=== PATIENT | male | born 1995 | race African-American/Black ===

== ENCOUNTER 2016-07-13 18:40 | Emergency (ER) | payer OTHER ==
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
[2016-07-13] MEDS ORDERED: HYDROCODONE/ACETAMINOPHEN 5-325 MG TABLET PO ONE (22:56)
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
[2016-07-13 23:49] VITALS: BP 113/57
== END 2016-07-13 23:40 | disposition home or self-care (01) ==
LOC: ER 18:40
DX: M54.5 Low back pain (principal); M25.561 Pain in right knee; V49.50XA Passenger injured in collision with unspecified motor vehicles in traffic accident, initial encounter; F17.210 Nicotine dependence, cigarettes, uncomplicated; Z71.6 Tobacco abuse counseling; J45.909 Unspecified asthma, uncomplicated
CPT/HCPCS: 72110; 99283; 99406

== ENCOUNTER 2016-08-09 02:27 | Emergency (ER) | payer OTHER ==
[2016-08-09 02:42] VITALS: BP 115/63
[2016-08-09] MEDS ORDERED: LIDOCAINE 1% INJ-PF (10 MG/ML) 30 ML SDV INJ ONE (03:44)
--- NOTE | 2016-08-09 05:22 | ER Document Report ---
ED Skin Rash/Insect Bite/Abscs - General Chief Complaint: Abscess Stated Complaint: RIGHT ARM PAIN Mode of Arrival: Ambulatory Information source: Patient Notes: 21-year-old male presents to the emergency department complaining of persistent area of tenderness and swelling to right buttocks area over the last 2 weeks. Patient reports area began as pimple-like and has increased in size and tenderness. Denies fever, drainage, difficulty with bowel movements or urination. Reports similar episode in the past when he had abscess to left groin. States has had tetanus vaccination within the last 2 years. TRAVEL OUTSIDE OF THE [place] IN LAST 30 DAYS: No - HPI Patient complains to provider of: Tender/swollen area Onset/Duration: Persistent Quality of pain: Achy Severity: Moderate Pain Level: 3 Skin Character: Abscess, Tenderness Skin Temperature: Warm Quality of rash: Painful Similar symptoms previously: Yes Recently seen / treated by doctor: No - Related Data Allergies/Adverse Reactions: PEANUTS Adverse Reaction (Severe, Uncoded 08/09/16 02:38) Past Medical History - General Information source: Patient - Social History Smoking Status: Current Every Day Smoker Chew tobacco use (# tins/day): No Frequency of alcohol use: Occasional Drug Abuse: Marijuana Lives with: Family Family History: Reviewed & Not Pertinent Patient has suicidal ideation: No Patient has homicidal ideation: No Pulmonary Medical History: Reports: Hx Asthma Renal/ Medical History: Denies: Hx Peritoneal Dialysis Surgical Hx: Negative - Immunizations Hx Diphtheria, Pertussis, Tetanus Vaccination: Yes Review of Systems - Review of Systems Constitutional: No symptoms reported EENT: No symptoms reported Cardiovascular: No symptoms reported Respiratory: No symptoms reported Gastrointestinal: No symptoms reported Genitourinary: No symptoms reported Male Genitourinary: No symptoms reported Musculoskeletal: No symptoms reported Skin: See HPI Hematologic/Lymphatic: No symptoms reported Neurological/Psychological: No symptoms reported -: Yes All other systems reviewed and negative Physical Exam - Vital signs Vitals: Temp Pulse Resp BP Pulse Ox 98.1 F 64 14 115/63 99 08/09/16 02:40 08/09/16 02:40 08/09/16 02:40 08/09/16 02:40 08/09/16 02:40 - General General appearance: Appears well, Alert In distress: None - HEENT Head: Normocephalic, Atraumatic Eyes: Normal Pupils: PERRL - Respiratory Respiratory status: No respiratory distress Chest status: Nontender Breath sounds: Normal Chest palpation: Normal - Cardiovascular Rhythm: Regular Heart sounds: Normal auscultation Murmur: No Pulses: Normal: Radial Normal capillary refill: Yes - Abdominal Inspection: Normal Distension: No distension Bowel sounds: Normal Tenderness: Nontender Organomegaly: No organomegaly - Rectal Tenderness: No Hemorrhoids: None - Back Back: Normal, Nontender - Extremities General upper extremity: Normal inspection, Nontender, Normal color, Normal ROM , Normal temperature General lower extremity: Normal inspection, Nontender, Normal color, Normal ROM , Normal temperature, Normal weight bearing - Neurological Neuro grossly intact: Yes Cognition: Normal Orientation: AAOx4 [place] Coma Scale Eye Opening: Spontaneous [place] Coma Scale Verbal: Oriented [place] Coma Scale Motor: Obeys Commands Anjali Coma Scale Total: 15 Speech: Normal Motor strength normal: LUE, RUE, LLE, RLE Sensory: Normal - Psychological Associated symptoms: Normal affect, Normal mood - Skin Skin Temperature: Warm Skin Moisture: Dry Skin Color: Normal Skin irregularity: Abscess - Patient has approximately 2 cm diameter raised area of tenderness and fluctuance to right inner lower buttocks approximately 3 cm lateral and inferior of anal area. Not involving perineum or rectum. Course - Re-evaluation Re-evalutation: 08/09/16 05:24 Patient hemodynamically stable, in no distress, afebrile. Abscess of right buttocks not involving perineum or rectum was I&D'd and culture of drainage obtained. Iodoform packing placed. Patient appears stable for discharge and verbalizes understanding of home care, follow-up, ED return precautions. - Vital Signs Vital signs: Temp Pulse Resp BP Pulse Ox 98.1 F 64 14 115/63 99 08/09/16 02:40 08/09/16 02:40 08/09/16 02:40 08/09/16 02:40 08/09/16 02:40 Procedures - Incision and Drainage Right Buttock Time completed: 04:45 Type: Simple Anesthetic type: 1% Lidocaine mL's of anesthetic: 3 Blade size: 11 I&D procedure: Betadine prep applied, Chlorprep applied, Iodoform packing placed , Sterile dressing applied Incision Method: Incision made by scalpel Amount/type of drainage: moderate amount purulent drainage. Culture obtained Adult Front & Back picture: 1 - Abscess Discharge - Discharge Clinical Impression: Abscess Condition: Stable Disposition: HOME, SELF-CARE Additional Instructions: ABSCESS: You have an abscess (boil). This a pus-forming infection, usually due to staph. Some boils may be left to drain on their own, but most require lancing. From the time the tender lump first appears, it may be three or four days before the abscess is ready to delia. Local heat and rest help at this stage of treatment. An antibiotic may prevent spread of the infection. Once the abscess is opened, packing may be placed into it. This is done so pus is not sealed inside by premature closure of the cavity. The packing will be removed at your follow-up visit or you may be advised to remove it yourself at home. Sometimes this packing must be replaced a few times during healing. The wound will heal with surprisingly little scar. Depending on the size and location of an abscess, healing can take one to four weeks. You may shower and wash the area around the incision site two or three times a day. Antibiotics may be prescribed, but are usually not necessary after an abscess has been drained. If you develop fever, chills, worsening pain, or increasing swelling in the area, call the doctor or return immediately. POST INCISION AND DRAINAGE: You have had an incision made to allow drainage of an abscess. The incision must remain open so that pus and debris can drain from the wound. If the abscess cavity is large, packing is placed. This keeps the tissues from collapsing and trapping pus inside, while the body shrinks the cavity. The packing may need to be replaced every day or two. The physician will instruct you on the packing. Keep a bulky dressing over the area. Replace it if it becomes saturated with blood or pus. Do not disturb the packing (if present). You may shower and cleanse the area with gentle soap and warm water two or three times a day. Local warmth may be soothing, and may promote faster healing. Return if you develop high fever or chills, or if you note spreading redness, increasing swelling, or increasing tenderness. ORAL NARCOTIC MEDICATION: You have been given a prescription for pain control. This medication is a narcotic. It's best taken with food, as nausea can result if taken on an empty stomach. Don't operate machinery or drive within six hours of taking this medication. Do not combine this medicine with alcohol, or with any medication which can cause sedation (such as cold tablets or sleeping pills) unless you get permission from the physician. Narcotics tend to cause constipation. If possible, drink plenty of fluids and eat a diet high in fiber and fruits. Clindamycin You have been given a prescription for the antibiotic clindamycin. It is often prescribed for infections in the mouth, such as dental infections or abscesses, and for skin infections due to MRSA. It's important that you take all the medication, unless instructed otherwise by your physician. Failure to complete the entire course can result in relapse of your condition. Common side effects of antibiotics include nausea, intestinal cramping, or diarrhea. Women may develop vaginal yeast infections, and babies can get yeast (thrush) in the mouth following the use of antibiotics. Contact your physician if you develop significant side effects from this medication. Allergy to this antibiotic can result in hives, wheezing, faintness, or itching. If symptoms of allergy occur, stop the medication and call the doctor. Use of Xlny-Ghs-Bmniqgt Ibuprofen Ibuprofen (Advil, Nuprin, Medipren, Motrin IB) is an excellent, safe drug for fever and pain control. In addition, it has anti- inflammatory effects which may be beneficial, especially in the treatment of injuries. It's best to take ibuprofen with food. Persons with ulcer disease or allergy to aspirin should notify their physician of this before taking ibuprofen. Ibuprofen can be given every four to six hours, for a total of four doses daily. Age Pain or fever dose Antiinflammatory dose 6-8 yr 200 mg (1 tab) 200 mg (1 tab) 9-11 yr 200 mg (1 tab) 200-400 mg (1-2 tab) 11-14 yr 200-400 mg (1-2 tab) 400 mg (2 tab) 15-adult 400 mg (2 tab) 600 mg (3 tab) FOLLOW-UP CARE: Remove the packing that was placed in 48 hours or before then if it becomes soiled. You may return to the emergency department to have the packing removed if you are comfortable doing it yourself at home. Follow-up with your primary care provider in 2-3 days. If you experience worsening or a significant change in your symptoms, return to the Emergency Department at any time for re-evaluation. Prescriptions: Clindamycin HCl 300 mg PO Q6H #28 capsule Hydrocodone/Acetaminophen [[place] 5-325 mg Tablet] 1 tab PO Q6H PRN #8 tablet PRN Reason: Forms: Return to Work
[2016-08-09] MEDS ORDERED: HYDROCODONE/ACETAMINOPHEN 5-325 MG TABLET PO ONE (05:31)
== END 2016-08-09 05:54 | disposition home or self-care (01) ==
LOC: ER 02:27
PROC: 0H98XZZ Drainage of Buttock Skin, External Approach (ICD-10-PCS; principal; 2016-08-09)
DX: L02.31 Cutaneous abscess of buttock (principal); J45.909 Unspecified asthma, uncomplicated; F17.200 Nicotine dependence, unspecified, uncomplicated
CPT/HCPCS: 10060; 99283; 87070; 87205; 87075; 87077; 87186; J3490

== ENCOUNTER 2016-11-14 16:09 | Emergency (ER) | payer SELFPAY ==
[2016-11-14] MEDS ORDERED: CEFTRIAXONE INJ 1000 MG VIAL IM ONE (18:04)
[2016-11-14] MEDS ORDERED: LIDOCAINE 1% INJ-PF (10 MG/ML) 30 ML SDV INJ ONE (18:04)
[2016-11-14] MEDS ORDERED: AZITHROMYCIN 250 MG TABLET PO ONE (18:05)
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
[2016-11-14 19:26] VITALS: BP 125/69
[2016-11-14 20:16] LABS: CHLAM PCR DETECTED (NOT DETECT)
== END 2016-11-14 19:05 | disposition home or self-care (01) ==
LOC: ER 16:09
DX: Z72.51 High risk heterosexual behavior (principal); Z11.3 Encounter for screening for infections with a predominantly sexual mode of transmission; J45.909 Unspecified asthma, uncomplicated
CPT/HCPCS: 99283; 96372; 87491; 87591; J3490; J0696

== ENCOUNTER 2016-11-16 16:52 | Emergency (ER) | payer OTHER ==
[2016-11-16 17:20] VITALS: BP 145/94
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
== END 2016-11-16 18:10 | disposition home or self-care (01) ==
LOC: ER 16:52
DX: M79.604 Pain in right leg (principal); F17.200 Nicotine dependence, unspecified, uncomplicated; V89.2XXA Person injured in unspecified motor-vehicle accident, traffic, initial encounter
CPT/HCPCS: 99283

== ENCOUNTER 2017-06-21 23:06 | Emergency (ER) | payer MEDICAID ==
[2017-06-22] MEDS ORDERED: AZITHROMYCIN 250 MG TABLET PO ONE (01:07)
[2017-06-22] MEDS ORDERED: CEFTRIAXONE INJ 250 MG VIAL IM ONE (01:07)
[2017-06-22] MEDS ORDERED: LIDOCAINE 1% INJ-PF (10 MG/ML) 30 ML SDV INJ ONE (01:07)
--- NOTE | 2017-06-22 01:09 | ER Document Report ---
ED General - General Chief Complaint: STD Exposure Stated Complaint: STD CHECK Time Seen by Provider: 06/22/17 01:06 Notes: Patient is a 22-year-old male with a past medical history presents with concerns of having gonorrhea. Patient states that he was tested at a clinic in [place], [facility] and informed that he had gonorrhea but when he went to the clinic for treatment they were closed. This prompted to come to the emergency department. He denies any symptoms other than a whitish discharge from his penis. He denies any associated dysuria, fever, joint pain or constitutional symptoms. He denies any prior history of STDs in the past. TRAVEL OUTSIDE OF THE [place] IN LAST 30 DAYS: No - Related Data Allergies/Adverse Reactions: PEANUTS Adverse Reaction (Severe, Uncoded 11/14/16 16:31) Past Medical History - General Information source: Patient - Social History Smoking Status: Never Smoker Cigarette use (# per day): No Frequency of alcohol use: None Drug Abuse: None Family History: Reviewed & Not Pertinent Pulmonary Medical History: Reports: Hx Asthma - as child Renal/ Medical History: Denies: Hx Peritoneal Dialysis - Immunizations Hx Diphtheria, Pertussis, Tetanus Vaccination: Yes Review of Systems - Review of Systems Notes: Constitutional: Negative for fever. HENT: Negative for sore throat. Eyes: Negative for visual changes. Cardiovascular: Negative for chest pain. Respiratory: Negative for shortness of breath. Gastrointestinal: Negative for abdominal pain, vomiting or diarrhea. Genitourinary: Positive for penile discharge Musculoskeletal: Negative for back pain. Skin: Negative for rash. Neurological: Negative for headaches, weakness or numbness. 10 point ROS negative except as marked above and in HPI. Physical Exam - Vital signs Vitals: Temp Pulse Resp BP Pulse Ox 98.2 F 56 L 20 119/64 99 06/22/17 00:08 06/22/17 00:08 06/22/17 00:08 06/22/17 00:08 06/22/17 00:08 Interpretation: Normal Notes: PHYSICAL EXAMINATION: GENERAL: Well-appearing, well-nourished and in no acute distress. HEAD: Atraumatic, normocephalic. EYES: sclera anicteric, conjunctiva are normal. ENT: Moist mucous membranes. NECK: Normal range of motion LUNGS: Normal work of breathing HEART: 2+ radial pulses bilaterally : Whitish discharge from the urethral meatus, no penile or scrotal lesions. No testicular tenderness. No epididymal tenderness. EXTREMITIES: no pitting or edema. No cyanosis. NEUROLOGICAL: No focal neurological deficits. Moves all extremities spontaneously and on command. PSYCH: Normal mood, normal affect. SKIN: Warm, Dry, normal turgor, no rashes or lesions noted. Course - Re-evaluation Re-evalutation: 06/22/17 01:08 Patient presents with symptoms of gonorrhea and a positive gonorrhea test and he is presenting requesting treatment. He denies any additional symptoms began dysuria and penile discharge. Exam otherwise unremarkable. He has been treated with ceftriaxone and azithromycin. Safe sex practices have been discussed. At this time will discharge with return precautions and follow-up recommendations. Verbal discharge instructions given a the bedside and opportunity for questions given. Medication warnings reviewed. Patient is in agreement with this plan and has verbalized understanding of return precautions and the need for primary care follow-up in the next 24-72 hours. - Vital Signs Vital signs: Temp Pulse Resp BP Pulse Ox 97.4 F 51 L 14 120/69 99 06/22/17 01:56 06/22/17 01:56 06/22/17 01:56 06/22/17 01:56 06/22/17 01:56 - Laboratory Laboratory results interpreted by me: 06/22/17 00:52 N.gonorrhoeae DNA (PCR) DETECTED H Discharge - Discharge Clinical Impression: STD (male), Gonorrhea Condition: Good Disposition: HOME, SELF-CARE Additional Instructions: You need to use protection every time you have sex. Failure to do so can result in transmission of infections or unintended . You have been treated for an sexually transmitted infection (STI) today. All of your partners should be tested and treated as they are also likely to be infected. Please return if you develop abdominal pain, fever, persistent vomiting, or any other symptoms that are concerning to you.
[2017-06-22 01:59] VITALS: BP 120/69
[2017-06-22 02:31] LABS: CHLAM PCR NOT DETECTED (NOT DETECT); GON PCR DETECTED (NOT DETECT)
== END 2017-06-22 02:00 | disposition home or self-care (01) ==
LOC: ER 23:06
DX: A54.09 Other gonococcal infection of lower genitourinary tract (principal)
CPT/HCPCS: 99283; 96372; 87491; 87591; Q0144; J3490; J0696

== ENCOUNTER 2017-12-17 21:59 | Emergency (ER) | payer SELFPAY ==
[2017-12-17 23:05] VITALS: BP 119/74
[2017-12-18] MEDS ORDERED: LIDOCAINE 1%/EPINEPHRINE INJ 20 ML VIAL INJ ONE (01:12)
[2017-12-18] MEDS ORDERED: BUPIVACAINE HCL 0.25 % INJ/PF (2.5 MG/1 ML) 30 ML VIAL INJ ONE (01:12)
[2017-12-18] MEDS ORDERED: NAPROXEN 375 MG TABLET PO ONE (01:15)
[2017-12-18] MEDS ORDERED: DOXYCYCLINE HYCLATE 100 MG TABLET PO ONE (02:14)
[2017-12-18] MEDS ORDERED: IBUPROFEN 800 MG TABLET PO ONE (02:24)
--- NOTE | 2017-12-18 02:42 | ER Document Report ---
ED Skin Rash/Insect Bite/Abscs - General Chief Complaint: Abscess Stated Complaint: THIGH PAIN Time Seen by Provider: 12/18/17 00:27 Notes: Patient is a 22-year-old male who comes in complaining of a painful lump to his right groin that he has had before. Patient states that he had this area drained in the past. Unsure if he has any history of MRSA. No other past medical history except for tubes in his ears and he was a kid. Patient smokes and drinks socially. TRAVEL OUTSIDE OF THE [place] IN LAST 30 DAYS: No - HPI Patient complains to provider of: Tender/swollen area Onset: Other - 2 weeks Quality of pain: Fullness, Throbbing Severity: Moderate Skin Character: Abscess Skin Temperature: Warm Quality of rash: Painful Exacerbated by: Movement Relieved by: Remaining still Similar symptoms previously: Yes Recently seen / treated by doctor: No - Related Data Allergies/Adverse Reactions: PEANUTS Adverse Reaction (Severe, Uncoded 11/14/16 16:31) Past Medical History - Social History Smoking Status: Current Every Day Smoker Chew tobacco use (# tins/day): No Frequency of alcohol use: None Drug Abuse: Marijuana Family History: Reviewed & Not Pertinent Patient has suicidal ideation: No Patient has homicidal ideation: No Pulmonary Medical History: Reports: Hx Asthma - as child Renal/ Medical History: Denies: Hx Peritoneal Dialysis Past Surgical History: Reports: Hx Myringotomy - Immunizations Hx Diphtheria, Pertussis, Tetanus Vaccination: Yes Review of Systems - Review of Systems Constitutional: No symptoms reported EENT: No symptoms reported Cardiovascular: No symptoms reported Respiratory: No symptoms reported Gastrointestinal: No symptoms reported Genitourinary: No symptoms reported Male Genitourinary: No symptoms reported Musculoskeletal: No symptoms reported Skin: See HPI Hematologic/Lymphatic: No symptoms reported Neurological/Psychological: No symptoms reported Physical Exam - Vital signs Vitals: Temp Pulse Resp BP Pulse Ox 98.9 F 77 12 119/74 98 12/17/17 22:35 12/17/17 22:35 12/17/17 22:35 12/17/17 22:35 12/17/17 22:35 Interpretation: Normal - General General appearance: Appears well, Alert - HEENT Head: Normocephalic, Atraumatic Eyes: Normal Pupils: PERRL - Respiratory Respiratory status: No respiratory distress Chest status: Nontender Breath sounds: Normal Chest palpation: Normal - Cardiovascular Rhythm: Regular Heart sounds: Normal auscultation Murmur: No - Abdominal Inspection: Normal Distension: No distension Bowel sounds: Normal Tenderness: Nontender Organomegaly: No organomegaly - Back Back: Normal, Nontender - Extremities General upper extremity: Normal inspection, Nontender, Normal color, Normal ROM , Normal temperature General lower extremity: Normal inspection, Nontender, Normal color, Normal ROM , Normal temperature, Normal weight bearing. No: Vivi's sign - Neurological Neuro grossly intact: Yes Cognition: Normal Orientation: AAOx4 Anjali Coma Scale Eye Opening: Spontaneous Amberg Coma Scale Verbal: Oriented Anjali Coma Scale Motor: Obeys Commands Amberg Coma Scale Total: 15 Speech: Normal Motor strength normal: LUE, RUE, LLE, RLE Sensory: Normal - Psychological Associated symptoms: Normal affect, Normal mood - Skin Skin Temperature: Warm Skin Moisture: Dry Skin Color: Normal Skin irregularity: Abscess - Right inguinal area approximately 5 cm in diameter Course - Re-evaluation Re-evalutation: 12/18/17 03:06 Incision and drainage performed at bedside. Please see procedure note. Patient will be discharged home with doxycycline and is to return in 24-48 hours for wound check. Patient is agreeable to this plan. Of note, no involvement of scrotum or perineum. Stable for discharge. - Vital Signs Vital signs: Temp Pulse Resp BP Pulse Ox 98.9 F 77 12 119/74 98 12/17/17 22:35 12/17/17 22:35 12/17/17 22:35 12/17/17 22:35 12/17/17 22:35 Procedures - Incision and Drainage Right Groin Time completed: 02:30 Type: Complex Anesthetic type: 1% Lidocaine w/epi, 0.25% Bupivacaine Blade size: 11 I&D procedure: Chlorprep applied, Sterile dressing applied Incision Method: Incision made by scalpel Amount/type of drainage: 10 cc purulent drainage Discharge - Discharge Clinical Impression: Abscess of groin, right Condition: Stable Disposition: HOME, SELF-CARE Instructions: Abscess ([facility]), Post Incision and Drainage Additional Instructions: Please return in 24-48 hours for wound check. Prescriptions: Doxycycline Hyclate 100 mg PO BID #20 capsule Naproxen 375 mg PO DAILY #20 tablet Forms: Return to Work
[2017-12-18] MEDS ORDERED: HYDROCODONE/ACETAMINOPHEN 5-325 MG (6 TAB/ER DISP) PO PRN (02:49)
== END 2017-12-18 03:01 | disposition home or self-care (01) ==
LOC: ER 21:59
DX: L02.214 Cutaneous abscess of groin (principal); F17.200 Nicotine dependence, unspecified, uncomplicated
CPT/HCPCS: 99283; 87070; 87205; 87075; 87077; 10060; A6266; J3490

== ENCOUNTER 2017-12-20 22:38 | Emergency (ER) | payer SELFPAY ==
[2017-12-21] MEDS ORDERED: SULFAMETHOXAZOLE/TRIMETHOPRIM 800-160 MG TABLET PO ONE (00:58)
[2017-12-21] MEDS ORDERED: KETOROLAC TROMETHAMINE 60 MG/2 ML SDV IM ONE (00:58)
--- NOTE | 2017-12-21 00:58 | ER Document Report ---
ED General - General Chief Complaint: Wound Recheck Stated Complaint: LEG PROBLEM Time Seen by Provider: 12/21/17 00:47 Notes: Patient presents with wound recheck request. Approximately 3 days ago he had incision and drainage of abscess to right inguinal area. He was provided doxycycline prescriptions but states that it cost $30 so he did not fill it. He states that the wound has improved but comes back for wound recheck because packing fell out. He denies any nausea vomiting fevers or chills. No known medical allergies to peanuts. TRAVEL OUTSIDE OF THE [place] IN LAST 30 DAYS: No - Related Data Allergies/Adverse Reactions: PEANUTS Adverse Reaction (Severe, Uncoded 11/14/16 16:31) Past Medical History - Social History Smoking Status: Unknown if Ever Smoked Family History: Reviewed & Not Pertinent Pulmonary Medical History: Reports: Hx Asthma - as child Renal/ Medical History: Denies: Hx Peritoneal Dialysis Past Surgical History: Reports: Hx Myringotomy - Immunizations Hx Diphtheria, Pertussis, Tetanus Vaccination: Yes Review of Systems - Review of Systems Constitutional: No symptoms reported EENT: No symptoms reported Cardiovascular: No symptoms reported Respiratory: No symptoms reported Gastrointestinal: No symptoms reported Genitourinary: No symptoms reported Male Genitourinary: No symptoms reported Musculoskeletal: No symptoms reported Skin: No symptoms reported, Other - Abscess to right inguinal area Hematologic/Lymphatic: No symptoms reported Neurological/Psychological: No symptoms reported Physical Exam - Vital signs Vitals: Temp Pulse Resp BP Pulse Ox 98.4 F 54 L 18 114/67 100 12/20/17 23:09 12/20/17 23:09 12/20/17 23:09 12/20/17 23:09 12/20/17 23:09 - General General appearance: Appears well, Alert - HEENT Head: Normocephalic, Atraumatic - Respiratory Respiratory status: No respiratory distress Chest status: Nontender Breath sounds: Normal. No: Rales, Stridor, Wheezing - Cardiovascular Rhythm: Regular Heart sounds: Normal auscultation Murmur: No - Abdominal Inspection: Normal Distension: No distension Bowel sounds: Normal Tenderness: Nontender - Genitourinary Inspection: Other - Small sinus in mid right inguinal area no purulence drainage with pressure applied Course - Re-evaluation Re-evalutation: 12/21/17 00:56 Instructed patient to download good Rx on phone. His friend did so and showed him how to use it and showed that Bactrim is only $7 at a nearby pharmacy. Will provide first dose of Bactrim here in the provide 5 days prescription in lieu of doxycycline that he was provided from prior visit. Return precautions provided. - Vital Signs Vital signs: Temp Pulse Resp BP Pulse Ox 98.4 F 54 L 18 114/67 100 12/20/17 23:09 12/20/17 23:09 12/20/17 23:09 12/20/17 23:09 12/20/17 23:09 Discharge - Discharge Clinical Impression: Encounter for wound re-check, Abscess of groin, right Condition: Good Disposition: HOME, SELF-CARE Instructions: Trimethoprim-Sulfa ([facility]), Abscess ([facility]) Additional Instructions: Please have medications filled's and use all medications as prescribed. Do not have doxycycline prescription filled from prior visit. Prescriptions: Sulfamethoxazole/Trimethoprim [Bactrim Ds Tablet] 1 each PO BID 5 Days #10 tablet
[2017-12-21 01:15] VITALS: BP 123/74
== END 2017-12-21 01:18 | disposition home or self-care (01) ==
LOC: ER 22:38
DX: Z48.817 Encounter for surgical aftercare following surgery on the skin and subcutaneous tissue (principal); L02.214 Cutaneous abscess of groin; T36.4X6A Underdosing of tetracyclines, initial encounter; Z91.120 Patient's intentional underdosing of medication regimen due to financial hardship; Z91.14 Patient's other noncompliance with medication regimen
CPT/HCPCS: 99282; 96372; J1885

== ENCOUNTER 2018-06-26 13:07 | Emergency (ER) | payer SELFPAY ==
[2018-06-26 13:12] VITALS: BP 100/58
--- NOTE | 2018-06-26 13:56 | ER Document Report ---
ED Oral Problem - General Chief Complaint: Mouth Problem Stated Complaint: MOUTH PAIN Time Seen by Provider: 06/26/18 13:32 Mode of Arrival: Ambulatory Information source: Patient Notes: 23-year-old male presented to ED for complaint of dental pain to tooth #32. He also has a small infected hair follicle on his right cheek. He states the dental pain has been for couple days but it was worse today so he had to go home from work. He states he has been squeezing the hair bump and it is gotten bigger so he wanted to eat seek medical help to get treatment for both. Patient is alert oriented respirations regular and unlabored speaking in full sentences walks with a even steady gait. TRAVEL OUTSIDE OF THE U.S. IN LAST 30 DAYS: No - HPI Patient complains to provider of: Swelling of face - From an infected hair follicle that he has been squeezing, Toothache Onset: Yesterday Onset: Gradual Quality of pain: Achy Severity: Moderate Pain Level: 3 Associated symptoms: Toothache, Other - Infected pimple on the right cheek Worsened by: Cold Relieved by: Nothing Similar symptoms previously: Yes Recently seen / treated by doctor/dentist: No - Related Data Allergies/Adverse Reactions: PEANUTS Adverse Reaction (Severe, Uncoded 11/14/16 16:31) Past Medical History - General Information source: Patient - Social History Smoking Status: Current Every Day Smoker Cigarette use (# per day): Yes - 4 Cigarettes a day Chew tobacco use (# tins/day): No Smoking Education Provided: Yes Frequency of alcohol use: None Drug Abuse: Marijuana Occupation: 4 minutes Lives with: Parents Family History: Reviewed & Not Pertinent Patient has suicidal ideation: No Patient has homicidal ideation: No - Past Medical History Cardiac Medical History: Reports: None Pulmonary Medical History: Reports: Hx Asthma - as child EENT Medical History: Reports: None Neurological Medical History: Reports: None Endocrine Medical History: Reports: None Renal/ Medical History: Reports: None Malignancy Medical History: Reports None GI Medical History: Reports: None Musculoskeletal Medical History: Reports None Skin Medical History: Reports None Psychiatric Medical History: Reports: None Traumatic Medical History: Reports: None Infectious Medical History: Reports: None Past Surgical History: Reports: Hx Myringotomy - Immunizations Hx Diphtheria, Pertussis, Tetanus Vaccination: Yes Review of Systems - Review of Systems Constitutional: No symptoms reported EENT: Dental problem, Other - Pimple he has been squeezing on his right cheek Cardiovascular: No symptoms reported Respiratory: No symptoms reported Gastrointestinal: No symptoms reported Genitourinary: No symptoms reported Male Genitourinary: No symptoms reported Musculoskeletal: No symptoms reported Skin: No symptoms reported Hematologic/Lymphatic: No symptoms reported Neurological/Psychological: No symptoms reported -: Yes All other systems reviewed and negative Physical Exam - Vital signs Vitals: Temp Pulse Resp BP Pulse Ox 97.6 F 63 14 100/58 L 100 06/26/18 13:11 06/26/18 13:11 06/26/18 13:11 06/26/18 13:11 06/26/18 13:11 Interpretation: Normal - General General appearance: Appears well, Alert - HEENT Head: Normocephalic, Atraumatic, Tenderness - Patient has a pimple to the right cheek that he has been squeezing and is mildly inflamed Eyes: Normal Pupils: PERRL Ears: Normal External canal: Normal Tympanic membrane: Normal Sinus: Normal Nasal: Normal Mouth/Lips: Caries Mucous membranes: Normal Teeth diagram: 1 - Dental cavity with mild redness around the tooth Pharynx: Normal Neck: Anterior cervical chain - Respiratory Respiratory status: No respiratory distress Chest status: Nontender Breath sounds: Normal Chest palpation: Normal - Cardiovascular Rhythm: Regular Heart sounds: Normal auscultation Murmur: No - Abdominal Inspection: Normal Distension: No distension Bowel sounds: Normal Tenderness: Nontender Organomegaly: No organomegaly - Back Back: Normal, Nontender - Extremities General upper extremity: Normal inspection, Nontender, Normal color, Normal ROM, Normal temperature General lower extremity: Normal inspection, Nontender, Normal color, Normal ROM, Normal temperature, Normal weight bearing. No: Vivi's sign - Neurological Neuro grossly intact: Yes Cognition: Normal Orientation: AAOx4 [place] Coma Scale Eye Opening: Spontaneous Anjali Coma Scale Verbal: Oriented [place] Coma Scale Motor: Obeys Commands [place] Coma Scale Total: 15 Speech: Normal Motor strength normal: LUE, RUE, LLE, RLE Sensory: Normal - Psychological Associated symptoms: Normal affect, Normal mood - Skin Skin Temperature: Warm Skin Moisture: Dry Skin Color: Normal Location of irregularity: Face - Mildly inflamed pimple that patient has been squeezing Character of irregularity: Erythematous Irregularity with: Swelling, Tenderness, Inflammation Course - Re-evaluation Re-evalutation: 06/26/18 13:58 Presentation is most consistent with likely an infected tooth. Airway is patent. Vitals within normal limits. Patient is able swallow without any difficulty. There is no significant facial swelling. No evidence of Qasim angina, apical abscess, or airway obstruction. Patient will be started on antibiotics. I've instructed to follow-up with dentistry as earliest ability for definitive management. At this time will discharge with return precautions and follow-up recommendations. Verbal discharge instructions given a the bedside and opportunity for questions given. Medication warnings reviewed. Hermes kim is in agreement with this plan and has verbalized understanding of return precautions and the need for primary care follow-up in the next 24-72 hours. - Vital Signs Vital signs: Temp Pulse Resp BP Pulse Ox 97.6 F 63 14 100/58 L 100 06/26/18 13:11 06/26/18 13:11 06/26/18 13:11 06/26/18 13:11 06/26/18 13:11 Discharge - Discharge Clinical Impression: Pain due to dental caries, Cellulitis of right external cheek Condition: Stable Disposition: HOME, SELF-CARE Instructions: Family Physicians / Practices Additional Instructions: TOOTHACHE: Your pain is due to dental decay. The tooth must be repaired in order for you to feel better. You will, therefore, be referred to a dentist. We do not have dentists on the staff at [facility]. Severe swelling or drainage around a tooth usually means a dental abscess. This also requires evaluation and treatment by the dentist, but antibiotics may be prescribed while awaiting dental treatment. You should be rechecked immediately if you develop major swelling of the face, increasing pain, a lump in the jaw or gums, headache, difficulty swallowing, or fever. You have a small infected hair bump or pimple to the right cheek. Please clean the skin with soap and water 2-3 times a day and apply warm compresses. If it becomes larger or more infected please follow-up with your primary doctor or return to the ED. PENICILLIN V K: You have been given a prescription for Penicillin VK. Your physician has determined that this is the best antibiotic for your condition. Pen VK can be taken with meals, however more of the antibiotic gets into the bloodstream if it's taken on an empty stomach. Penicillin usually has no side effects. However, allergy to penicillins is common. If you have had an allergic reaction to any drug of the penicillin family, you should never take any other penicillin. Notify your doctor at once if you develop hives, itching, swelling, faintness, or shortness of breath. FOLLOW-UP CARE: You have been referred for follow-up care to the dentists listed below. Call the dentists office for an appointment as you were instructed or within the next two days. If you experience worsening or a significant change in your symptoms, notify the physician immediately or return to the Emergency Department at any time for re-evaluation. [facility] [address] [place], [place] [facility] [address] [place] [address] [facility] [place] [address] [facility] [address] [facility] [address] [email or web address] [facility] [address] [place] [address] Saturday- 8:00am to 5:00 pm Will see patients from other [facility]. Charges based on income and family size and accepts Medicare, Medicaid, and Insurances Will pull molars [facility] [address] Hours of Operation 8:00 am - 4:30 pm weekdays The following dental offices accept Medicaid: [facility] Dr[address] Dominguez Dr. Shepherd Dr. Mcgrath Dr. Osborne Carlitos Lechuga L[place], and [facility] oral surgery Dr. Montano ([place]) Dr. Strong ([place]) [facility] Drs. Moe and Emory ([place]) Dr. Toussaint ([place]) [facility] Dr. Whitfield ([place]) Drs. Moore and ([place]) Medicaid Care Line Prescriptions: Penicillin V Potassium [Penicillin Vk 500 mg Tablet] 500 mg PO BID #20 tablet Forms: Smoking Cessation Education, Return to Work
== END 2018-06-26 14:01 | disposition home or self-care (01) ==
LOC: ER 13:07
DX: L03.211 Cellulitis of face (principal); K02.9 Dental caries, unspecified; K08.89 Other specified disorders of teeth and supporting structures; F17.210 Nicotine dependence, cigarettes, uncomplicated; J45.909 Unspecified asthma, uncomplicated
CPT/HCPCS: 99282

== ENCOUNTER 2018-07-04 20:18 | Emergency (ER) | payer SELFPAY ==
[2018-07-04] MEDS ORDERED: DIPHENHYDRAMINE HCL 50 MG CAPSULE PO ONE (21:05)
[2018-07-04] MEDS ORDERED: FAMOTIDINE 20 MG TABLET PO ONE (21:06)
[2018-07-04] MEDS ORDERED: PREDNISONE 20 MG TABLET PO ONE (21:06)
--- NOTE | 2018-07-04 21:38 | ER Document Report ---
ED General - General Chief Complaint: Lip Swelling Stated Complaint: POSSIBLE ALLERGIC REACTION Time Seen by Provider: 07/04/18 21:05 Information source: Patient TRAVEL OUTSIDE OF THE [place] IN LAST 30 DAYS: No - HPI Patient complains to provider of: lower lip swelling Onset: This afternoon Onset/Duration: Sudden Quality of pain: No pain Severity: Mild Pain Level: Denies Context: started shortly after applying Blistex to lip Associated symptoms: Leg swelling. denies: Hoarseness, Shortness of breath, Sore throat Exacerbated by: Denies Relieved by: Denies Similar symptoms previously: No Recently seen / treated by doctor: No Notes: 23-year-old -[place] male coming in today with lower lip swelling. States yesterday he applied Blistex to his lower lip. Workup and found that he had swelling in his lip. No difficulty swallowing. Does not have any swelling of the tongue or throat. Patient has a history of anaphylaxis with peanuts but states that he did not have any of the typical rash and itching and swelling that he normally associates with peanut reaction. - Related Data Allergies/Adverse Reactions: PEANUTS Adverse Reaction (Severe, Uncoded 11/14/16 16:31) Past Medical History - General Information source: Patient - Social History Smoking Status: Never Smoker Chew tobacco use (# tins/day): No Frequency of alcohol use: None Family History: Reviewed & Not Pertinent Patient has suicidal ideation: No Patient has homicidal ideation: No Pulmonary Medical History: Reports: Hx Asthma - as child Renal/ Medical History: Denies: Hx Peritoneal Dialysis Past Surgical History: Reports: Hx Myringotomy - Immunizations Hx Diphtheria, Pertussis, Tetanus Vaccination: Yes Review of Systems - Review of Systems Notes: Constitutional: No fevers. No chills. EENT: No eye redness. No eye pain. No ear pain. No sore throat. Positive for lower lip swelling Cardiovascular: No chest pain. No palpitations. Respiratory: No cough. No shortness of breath. No respiratory distress. Gastrointestinal: No abdominal pain. No nausea, vomiting, or diarrhea. Genitourinary: Atraumatic. No lesions. No pain. No discharge. Musculoskeletal: Atraumatic. No swelling. No deformities. Skin: No rash or lesions. Lymphatic: No swollen lymph nodes. Neurologic: No headache. No syncope. Psychiatric: No suicidal or homicidal ideation. Physical Exam - Vital signs Vitals: Temp Pulse Resp BP Pulse Ox 98.2 F 63 16 117/66 99 07/04/18 20:29 07/04/18 20:29 07/04/18 20:29 07/04/18 20:29 07/04/18 20:29 - Notes Notes: General: Well-developed, well-nourished. In no acute distress. Non-toxic appearing. Cardiac: Well-perfused. Regular rate and rhythm. No murmurs, rubs, or gallops. Pulmonary: No respiratory distress. No cyanosis. Bilateral lung fiels are clear to auscultation. Abdominal: Non-distended. Non-rigid. Bowels sounds are present in all four quadrants. No guarding or rebound. HEENT: Head is atraumatic. Conjunctivae not reddened. No tearing. PERRL. EOMI. Orbits atraumatic. No periorbital swelling or erythema. Oropharynx is without erythema, swelling, or exudates. There is a small amount of swelling to the left half of the lower lip. There is no gum swelling. There is no oral floor swelling. There is no oropharyngeal swelling. The uvula is not edematous. Patient is not having any difficulty speaking or breathing. He is managing his secretions well. Neck: Supple. No adenopathy. No meningismus. Dermatologic: Warm with good turgor. No rash. Atraumatic. No urticaria Chest: Atraumatic. No chest wall tenderness to palpation. Musculoskeletal: Moves all extremities well. No range of motion deficits. no muscular or joint tenderness. No paraspinal muscle tenderness. no midline spinal tenderness or step-off. Genitourinary: Examination deferred Neurologic: No gross neurologic deficits. Psychiatric: Normal mood. Course - Re-evaluation Re-evalutation: 07/04/18 21:37 We will give the usual allergy cocktail including Benadryl, Pepcid, and prednisone p.o. here. Patient definitely does not look like he is experiencing anything even remotely like anaphylaxis. We will give him the usual cocktail, check his progress and if improving, discharged home. 07/04/18 22:29 Patient got his medicine just about half an hour ago. Is noticing mild improvement. Again, this does not look anything like it is going to be anaphylactic in nature. He said it for quite some time and has only isolated lower lip involvement. It seems to improved with typical allergy cocktail. We will discharge him home with same. He is encouraged to return if he notices any more serious allergic symptoms. He has a history of anaphylaxis to peanuts and knows what signs and symptoms to look for to get him to come back again. - Vital Signs Vital signs: Temp Pulse Resp BP Pulse Ox 98.2 F 63 16 117/66 99 07/04/18 20:29 07/04/18 20:29 07/04/18 20:29 07/04/18 20:29 07/04/18 20:29 Discharge - Discharge Clinical Impression: Allergic reaction Qualifiers: Encounter type: initial encounter Qualified Code(s): T78.40XA - Allergy, unspecified, initial encounter Condition: Good Disposition: HOME, SELF-CARE Instructions: Acute Allergic Reaction ([facility]) Additional Instructions: Return to the ED immediately if you notice increased swelling of your lips, tongue, or throat. Return immediately if you have any difficulty breathing or swallowing. Prescriptions: Famotidine [Pepcid 20 mg Tablet] 20 mg PO BID #10 tablet Fexofenadine HCl [Brooke] 180 mg PO DAILY #7 tablet Prednisone [Deltasone 20 mg Tablet] 2 tab PO DAILY 5 Days #10 tablet Referrals: [facility] [Provider Group] - Follow up as needed
[2018-07-04 22:39] VITALS: BP 110/62
== END 2018-07-04 22:40 | disposition home or self-care (01) ==
LOC: ER 20:18
DX: T78.40XA Allergy, unspecified, initial encounter (principal); R22.0 Localized swelling, mass and lump, head; J45.909 Unspecified asthma, uncomplicated
CPT/HCPCS: 99283; J7512

== ENCOUNTER 2018-08-06 08:01 | Emergency (ER) | payer SELFPAY ==
[2018-08-06 08:05] VITALS: BP 128/56
[2018-08-06] MEDS ORDERED: MONTELUKAST SODIUM 10 MG TABLET PO ONE (09:03)
[2018-08-06] MEDS ORDERED: IBUPROFEN 600 MG TABLET PO ONE (09:05)
--- NOTE | 2018-08-06 09:05 | ER Document Report ---
HPI - HPI Time Seen by Provider: 08/06/18 09:02 Pain Level: 1 Context: Patient is a 23-year-old male who presents to the emergency department with a chief complaint of allergies. He states that he has been dealing with his allergies since Saturday. He states that his eyes have been swollen for the past 2 days. Denies any eye drainage. He admits to a small cough with postnasal drip. Denies any fever. Past medical history includes tubes placed in his ears. He took some Zyrtec this morning, but has had little relief. Has not seen a primary care provider in regards to this visit. - ROS Systems Reviewed and Negative: Yes All other systems reviewed and negative - CONSTITUTIONAL Constitutional: DENIES: Fever - EENT EENT: REPORTS: Eye problems - slight edema jacinto eyes - NEURO Neurology: DENIES: Headache - CARDIOVASCULAR Cardiovascular: DENIES: Chest pain - RESPIRATORY Respiratory: DENIES: Coughing - REPRODUCTIVE Reproductive: DENIES: : - DERM Skin Color: Normal Skin Problems: None Past Medical History - Social History Smoking Status: Current Every Day Smoker Frequency of alcohol use: None Drug Abuse: None Family History: Reviewed & Not Pertinent Patient has suicidal ideation: No Patient has homicidal ideation: No Pulmonary Medical History: Reports: Hx Asthma - as child Renal/ Medical History: Denies: Hx Peritoneal Dialysis Past Surgical History: Reports: Hx Myringotomy - Immunizations Hx Diphtheria, Pertussis, Tetanus Vaccination: Yes Vertical Provider Document - CONSTITUTIONAL Agree With Documented VS: Yes Exam Limitations: No Limitations General Appearance: No Apparent Distress - INFECTION CONTROL TRAVEL OUTSIDE OF THE [place] IN LAST 30 DAYS: No - HEENT HEENT: Atraumatic, Conjuctival Injection, Normocephalic, PERRLA, Pharyngeal Erythema. negative: Pharyngeal Exudate, Pharyngeal Tenderness, Tympanic Membrane Red, Tympanic Membrane Bulging - NECK Neck: Normal Inspection - RESPIRATORY Respiratory: Breath Sounds Normal, No Respiratory Distress - CARDIOVASCULAR Cardiovascular: Regular Rate, Regular Rhythm Pulses: Normal: Radial - GI/ABDOMEN Gastrointestinal: Abdomen Soft - MUSCULOSKELETAL/EXTREMETIES Musculoskeletal/Extremeties: FROM, Non-Tender - NEURO Level of Consciousness: Awake, Alert, Appropriate Motor/Sensory: No Motor Deficit, No Sensory Deficit - DERM Integumentary: Warm, Dry Course - Re-evaluation Re-evalutation: 08/06/18 09:05 Patient's physical exam is consistent with seasonal allergies. He will be given Singulair since he is already on Zyrtec. I will also give him a prescription for Flonase due to him having erythema and edema in his nasal mucosa. He states that he is unable to get his prescriptions until Saturday. I encouraged him to used the Zyrtec until he is able to get the prescriptions. Advised the patient that marijuana use does not help when you have allergies. Verbal discharge instructions were given to the patient. They verbalized understanding. They are stable for discharge. - Vital Signs Vital signs: Temp Pulse Resp BP Pulse Ox 97.9 F 55 L 18 128/56 H 99 08/06/18 08:05 08/06/18 08:05 08/06/18 08:05 08/06/18 08:05 08/06/18 08:05 Discharge - Discharge Clinical Impression: Seasonal allergies, Seasonal allergic conjunctivitis Condition: Stable Disposition: HOME, SELF-CARE Additional Instructions: You were seen today in the emergency department for allergies. You have been given eyedrops. Place 1 drop to each eye every 3 hours for the next 7 days. You have also been prescribed Singulair and Flonase. Use as directed. If you develop difficulty breathing, shortness of breath, or any symptoms that are worrisome to you, please return to the emergency department. Prescriptions: Montelukast Sodium [Singulair 10 mg Tablet] 10 mg PO QHS #30 tablet Fluticasone Propionate [Flonase Nasal [place] 50 Mcg/[place] 16 gm] 2 sprays NASL Q12 #1 inhaler Forms: Return to Work
[2018-08-06] MEDS ORDERED: POLYMYXIN B SULFATE/TMP OPH SOLN (10 ML/ER DISP) OU PRN (09:09)
== END 2018-08-06 09:22 | disposition home or self-care (01) ==
LOC: ER 08:01
DX: H10.10 Acute atopic conjunctivitis, unspecified eye (principal); R05 Cough; R09.82 Postnasal drip; F17.200 Nicotine dependence, unspecified, uncomplicated
CPT/HCPCS: 99283; J3490

== ENCOUNTER 2018-12-18 21:22 | Emergency (ER) | payer SELFPAY ==
[2018-12-19] MEDS ORDERED: ONDANSETRON ODT 4 MG TAB (6 TAB/ER DISP) PO PRN (02:01)
--- NOTE | 2018-12-19 02:06 | ER Document Report ---
HPI - HPI Patient complains to provider of: nausea and vomiting Time Seen by Provider: 12/19/18 01:14 Pain Level: Denies Context: 23-year-old male with no past medical history presents to the emergency department with chief complaint of nausea and vomiting since yesterday morning. Patient states that he ate some Divehi food with on Saturday night and then woke up and had 3 successive episodes of vomiting. He did not vomit after that but was nauseated and had a sensation of his mouth watering. Patient denies any abdominal pain or diarrhea, denies fevers or chills, denies hematemesis or bloody stools. Patient has no other complaints. He states that the frequency of the vomiting has significantly slowed and he does have some mild nausea at this time. - REPRODUCTIVE Reproductive: DENIES: : - DERM Skin Color: Normal Past Medical History - Social History Smoking Status: Current Every Day Smoker Drug Abuse: Marijuana Family History: Reviewed & Not Pertinent Patient has suicidal ideation: No Patient has homicidal ideation: No Pulmonary Medical History: Reports: Hx Asthma - as child Renal/ Medical History: Denies: Hx Peritoneal Dialysis Past Surgical History: Reports: Hx Myringotomy - Immunizations Hx Diphtheria, Pertussis, Tetanus Vaccination: Yes Vertical Provider Document - CONSTITUTIONAL Notes: PHYSICAL EXAMINATION: Reviewed vital signs and charting by RN GENERAL: Alert, interacts well. No acute distress. HEAD: Normocephalic, atraumatic. EYES: Pupils equal and round. Extraocular movements intact. ENT: Oral mucosa moist, tongue midline. NECK: Full range of motion. Trachea midline. LUNGS: Clear to auscultation bilaterally, no wheezes, rales, or rhonchi. No respiratory distress. HEART: Regular rate and rhythm. No murmur ABDOMEN: soft, non-tender. No distention. Bowel sounds present EXTREMITIES: Moves all 4 extremities spontaneously. No edema, No cyanosis. PSYCH: Normal affect, normal mood. SKIN: Warm, dry, normal turgor. No rashes or lesions noted. - INFECTION CONTROL TRAVEL OUTSIDE OF THE [place] IN LAST 30 DAYS: No Course - Re-evaluation Re-evalutation: 12/19/18 02:06 Overall well-appearing in no acute distress, nontoxic. Patient is able to tolerate p.o. fluids and has not had any vomiting at all since yesterday morning. Patient states that he has had no diarrhea. He appears hydrated. At this time there is no indication to get lab work as this is most likely a self- limiting condition. Plan is to send him home with Zofran dose pack and has been given strict return precautions. - Vital Signs Vital signs: Temp Pulse Resp BP Pulse Ox 97.8 F 60 18 132/62 H 100 12/18/18 21:27 12/18/18 21:27 12/18/18 21:27 12/18/18 21:27 12/18/18 21:27 Discharge - Discharge Clinical Impression: Nausea & vomiting Qualifiers: Vomiting type: unspecified Vomiting Intractability: non-intractable Qualified Code(s): R11.2 - Nausea with vomiting, unspecified Condition: Good Disposition: HOME, SELF-CARE Instructions: Vomiting ([facility]), Antinausea Medication ([facility]) Additional Instructions: You have been seen in the Emergency Department (ED) today for nausea and vomiting. Your work up today has not shown a clear cause for your symptoms. You have been prescribed Zofran; please use as prescribed as needed for your nausea. Follow up with your doctor as soon as possible regarding today's emergent visit and your symptoms of nausea. Return to the Emergency Department (ED) if you develop abdominal pain, bloody vomiting, bloody diarrhea, if you are unable to tolerate fluids due to vomiting, or if you develop other symptoms that concern you. Forms: Return to Work
[2018-12-19 02:18] VITALS: BP 97/64
== END 2018-12-19 02:18 | disposition home or self-care (01) ==
LOC: ER 21:22
DX: R11.2 Nausea with vomiting, unspecified (principal); F17.200 Nicotine dependence, unspecified, uncomplicated; F12.10 Cannabis abuse, uncomplicated
CPT/HCPCS: 99283

== ENCOUNTER 2019-01-14 17:16 | Emergency (ER) | payer SELFPAY ==
[2019-01-14 17:21] VITALS: BP 106/61
[2019-01-14] MEDS ORDERED: IBUPROFEN 800 MG TABLET PO ONE (18:00)
[2019-01-14] MEDS ORDERED: PSEUDOEPHEDRINE HCL 30 MG TABLET PO ONE (18:00)
[2019-01-14] MEDS ORDERED: ONDANSETRON 4 MG TAB.RAPDIS PO ONE (18:00)
--- NOTE | 2019-01-14 18:01 | ER Document Report ---
HPI - HPI Patient complains to provider of: congestion Time Seen by Provider: 01/14/19 17:55 Onset: Other - 2 days Onset/Duration: Persistent Pain Level: Denies Context: Patient presents complaining of congestion symptoms for the past 2 days. Patient reports sinus pressure and nausea. No fever. Patient denies any sore throat or ear pain. Associated Symptoms: Nonproductive cough, Nausea, Rhinnorhea. denies: Chest pain, Earache, Vomiting, Sore throat Exacerbated by: Denies Relieved by: Denies Similar symptoms previously: No Recently seen / treated by doctor: No - ROS ROS below otherwise negative: Yes Systems Reviewed and Negative: Yes All other systems reviewed and negative - CONSTITUTIONAL Constitutional: DENIES: Fever, Chills - EENT EENT: REPORTS: Nasal Drainage-Clear, Congestion. DENIES: Sore Throat, Ear Pain - NEURO Neurology: REPORTS: Dizzinesss / Vertigo - CARDIOVASCULAR Cardiovascular: DENIES: Chest pain - RESPIRATORY Respiratory: DENIES: Trouble Breathing - GASTROINTESTINAL Gastrointestinal: REPORTS: Nausea. 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 IN LAST 30 DAYS: No - HEENT HEENT: Atraumatic, Normocephalic. negative: Pharyngeal Exudate, Pharyngeal Tenderness, Pharyngeal Erythema, Tympanic Membrane Red, Tympanic Membrane Bulging Notes: Clear rhinorrhea, swollen nasal mucosa - NECK Neck: Normal Inspection, Supple. negative: Lymphadenopathy-Left, Lymphadenopathy-Right - RESPIRATORY Respiratory: Breath Sounds Normal, No Respiratory Distress, Chest Non-Tender - CARDIOVASCULAR Cardiovascular: Regular Rate, Regular Rhythm, No Murmur. negative: Tachycardia - GI/ABDOMEN Gastrointestinal: Abdomen Soft - BACK Back: Normal Inspection - MUSCULOSKELETAL/EXTREMETIES Musculoskeletal/Extremeties: MAEW - NEURO Level of Consciousness: Awake, Alert, Appropriate Motor/Sensory: No Motor Deficit - DERM Integumentary: Warm, Dry, No Rash Course - Re-evaluation Re-evalutation: 01/14/19 18:02 Patient nontoxic in appearance. Patient with URI symptoms at this time. Stable vital signs. Will treat symptomatically at this time. Good return precautions discussed. - Vital Signs Vital signs: Temp Pulse Resp BP Pulse Ox 98.7 F 69 18 106/61 100 01/14/19 17:20 01/14/19 17:20 01/14/19 17:20 01/14/19 17:20 01/14/19 17:20 Discharge - Discharge Clinical Impression: Upper respiratory infection Qualifiers: URI type: unspecified URI Qualified Code(s): J06.9 - Acute upper respiratory infection, unspecified Condition: Stable Disposition: HOME, SELF-CARE Instructions: Acetaminophen, Upper Respiratory Illness ([facility]) Additional Instructions: Return immediately for any new or worsening symptoms Followup with your primary care provider, call tomorrow to make a followup appointment Prescriptions: Guaifenesin/Pseudoephedrne HCl [Mucinex D ER 1,200-120 mg Tab] 1 each PO Q12 PRN #12 tab.er.12h PRN Reason: Naproxen [Naprosyn 250 Nmg Tablet] 1 tab PO BID #14 tablet Ondansetron HCl [Zofran 4 mg Tablet] 1 - 2 tab PO Q6 PRN #10 tablet PRN Reason: Forms: Smoking Cessation Education, Return to Work Referrals: [facility] [Provider Group] - Follow up as needed [facility] [Provider Group] - Follow up as needed
== END 2019-01-14 18:10 | disposition home or self-care (01) ==
LOC: ER 17:16
DX: J06.9 Acute upper respiratory infection, unspecified (principal); R09.81 Nasal congestion; R51 Headache; R11.0 Nausea; R05 Cough; J34.89 Other specified disorders of nose and nasal sinuses; R42 Dizziness and giddiness; F17.200 Nicotine dependence, unspecified, uncomplicated; J45.909 Unspecified asthma, uncomplicated
CPT/HCPCS: 99283; S0119

== ENCOUNTER 2019-01-16 18:19 | Emergency (ER) | payer SELFPAY ==
[2019-01-16] MEDS ORDERED: CETIRIZINE 10 MG TABLET PO ONE (18:58)
[2019-01-16] MEDS ORDERED: OXYMETAZOLINE HCL 0.05% NASAL SPRAY 15 ML BOTTLE NASL ONE (18:58)
--- NOTE | 2019-01-16 19:03 | ER Document Report ---
HPI - HPI Patient complains to provider of: Cough, congestion Time Seen by Provider: 01/16/19 18:53 Onset: Other - 4 days Onset/Duration: Persistent Pain Level: Denies Context: Patient presents complaining of cough congestion for the past 4 days. Patient reports subjective fever at home. Patient states that he has been taking the medications that he was prescribed from his ER visit 2 days ago. Patient states that his employer sent him home and he needs a note for his employer. Associated Symptoms: Nonproductive cough, Fever, Rhinnorhea. denies: Earache, Nausea, Vomiting, Sinus pain/drainage, Sore throat Exacerbated by: Denies Relieved by: Denies Similar symptoms previously: Yes Recently seen / treated by doctor: Yes - ROS ROS below otherwise negative: Yes Systems Reviewed and Negative: Yes All other systems reviewed and negative - CONSTITUTIONAL Constitutional: REPORTS: Fever - Objective - EENT EENT: REPORTS: Sore Throat, Nasal Drainage-Clear, Congestion - CARDIOVASCULAR Cardiovascular: DENIES: Chest pain - RESPIRATORY Respiratory: REPORTS: Coughing. DENIES: Trouble Breathing - GASTROINTESTINAL Gastrointestinal: DENIES: Abdominal Pain, Nausea, Patient vomiting - DERM Skin Color: Normal Skin Problems: None Past Medical History - General Information source: Patient - Social History Smoking Status: Current Every Day Smoker Smoking Education Provided: Yes Frequency of alcohol use: None Drug Abuse: None Occupation: Foodservice Family History: Reviewed & Not Pertinent Patient has suicidal ideation: No Patient has homicidal ideation: No Pulmonary Medical History: Reports: Hx Asthma - as child Renal/ Medical History: Denies: Hx Peritoneal Dialysis Surgical Hx: Negative Past Surgical History: Reports: Hx Myringotomy - Immunizations Hx Diphtheria, Pertussis, Tetanus Vaccination: Yes Vertical Provider Document - CONSTITUTIONAL Agree With Documented VS: Yes Exam Limitations: No Limitations General Appearance: WD/WN, No Apparent Distress - INFECTION CONTROL TRAVEL OUTSIDE OF THE [place] IN LAST 30 DAYS: No - HEENT HEENT: Atraumatic, Normocephalic. negative: Pharyngeal Exudate, Pharyngeal Tenderness, Pharyngeal Erythema, Tympanic Membrane Red, Tympanic Membrane Bulging Notes: Clear rhinorrhea, swollen nasal mucosa, no facial swelling, no sinus tenderness - NECK Neck: Normal Inspection, Supple. negative: Lymphadenopathy-Left, Lymphadenopathy-Right - RESPIRATORY Respiratory: Breath Sounds Normal, No Respiratory Distress, Chest Non-Tender - CARDIOVASCULAR Cardiovascular: Regular Rate, Regular Rhythm, No Murmur. negative: Tachycardia - MUSCULOSKELETAL/EXTREMETIES Musculoskeletal/Extremeties: MAEW - NEURO Level of Consciousness: Awake, Alert, Appropriate Motor/Sensory: No Motor Deficit - DERM Integumentary: Warm, Dry, No Rash Course - Re-evaluation Re-evalutation: 01/16/19 20:10 Respirations even unlabored, patient nontoxic in appearance. No concern for pneumonia on x-ray. Will encourage symptomatic treatment at this time. - Vital Signs Vital signs: Temp Pulse Resp BP Pulse Ox 98.2 F 79 16 105/61 98 01/16/19 18:52 01/16/19 18:52 01/16/19 18:52 01/16/19 18:52 01/16/19 18:52 - Diagnostic Test Radiology reviewed: Image reviewed, Reports reviewed Discharge - Discharge Clinical Impression: Upper respiratory infection Qualifiers: URI type: unspecified URI Qualified Code(s): J06.9 - Acute upper respiratory infection, unspecified Condition: Stable Disposition: HOME, SELF-CARE Instructions: Acetaminophen, Upper Respiratory Illness ([facility]) Additional Instructions: Return immediately for any new or worsening symptoms Followup with your primary care provider, call tomorrow to make a followup appointment Use saline nasal spray to help with nasal congestion symptoms Continue to take your Mucinex D and naproxen as previously prescribed Use the Afrin nasal spray to sprays to each nostril twice a day only for 3 days, discontinue use after the third day as you can have rebound nasal congestion symptoms Prescriptions: Cetirizine HCl [Zyrtec 10 mg Tablet] 1 tab PO DAILY #15 tablet Forms: Return to Work Referrals: [facility] [Provider Group] - Follow up as needed
--- NOTE | 2019-01-16 19:19 | RADIOLOGY REPORT (SQ) ---
EXAM DESCRIPTION: CHEST 2 VIEWS COMPLETED DATE/TIME: 01/16/2019 7:03 pm REASON FOR STUDY: cough COMPARISON: 03/19/2016 EXAM PARAMETERS: NUMBER OF VIEWS: two views TECHNIQUE: Digital Frontal and Lateral radiographic views of the chest acquired. RADIATION DOSE: NA LIMITATIONS: none FINDINGS: LUNGS AND PLEURA: No opacities, masses or pneumothorax. No pleural effusion. MEDIASTINUM AND HILAR STRUCTURES: No masses or contour abnormalities. HEART AND VASCULAR STRUCTURES: Heart normal size. No evidence for failure. BONES: No acute findings. HARDWARE: None in the chest. OTHER: No other significant finding. IMPRESSION: NO ACUTE RADIOGRAPHIC FINDING IN THE CHEST. TECHNICAL DOCUMENTATION: JOB ID: [id number] [employer]- All Rights Reserved Reading location - IP/workstation name: [email or web address]
[2019-01-16 20:19] VITALS: BP 99/62
== END 2019-01-16 20:28 | disposition home or self-care (01) ==
LOC: ER 18:19
DX: J06.9 Acute upper respiratory infection, unspecified (principal); R05 Cough; J34.89 Other specified disorders of nose and nasal sinuses; R50.9 Fever, unspecified; F17.200 Nicotine dependence, unspecified, uncomplicated
CPT/HCPCS: 99283; 71046; J3490

== ENCOUNTER 2019-05-21 12:09 | Emergency (ER) | payer SELFPAY ==
[2019-05-21] MEDS ORDERED: NORMAL SALINE 1000 ML 1,000 ML IV ONE (12:56)
[2019-05-21] MEDS ORDERED: ONDANSETRON HCL INJ/PF 4 MG/2 ML SDV IV ONE (12:56)
--- NOTE | 2019-05-21 12:58 | ER Document Report ---
ED Medical Screen (RME) - General Chief Complaint: Vomiting Stated Complaint: VOMITING,FEVER Time Seen by Provider: 05/21/19 12:54 TRAVEL OUTSIDE OF THE [place] IN LAST 30 DAYS: No - HPI Notes: 05/21/19 12:57 [id number] male presents emergency room for evaluation of vomiting for the last 24 hours, patient states that he vomited 4 times yesterday and 3 times today, cannot keep anything down, reports fever and chills, denies any diarrhea. Patient states he did eat a chili dog yesterday had some abdominal pain yesterday but denies any today. No [id number] medications have been tried. Denies any chest pain shortness of breath. No sick contacts. Denies any headaches or rashes. Vaccinations up-to-date for age. I have greeted and performed a rapid initial assessment of this patient. A co mprehensive ED assessment and evaluation of the patient, analysis of test results and completion of the medical decision making process will be conducted by additional ED providers. PHYSICAL EXAMINATION: GENERAL: Well-appearing, well-nourished and in no acute distress. CV: s1, s2 regular LUNGS: No respiratory distress Musculoskeletal: Normal range of motion NEUROLOGICAL: Normal speech, normal gait. SKIN: Warm, Dry, normal turgor, no rashes or lesions noted. - Related Data Allergies/Adverse Reactions: PEANUTS Adverse Reaction (Severe, Uncoded 05/21/19 12:32) Anaphylaxis Home Medications: pt denies Past Medical History - Social History Frequency of alcohol use: Rare Drug Abuse: Marijuana Pulmonary Medical History: Reports: Hx Asthma - as child Renal/ Medical History: Denies: Hx Peritoneal Dialysis Past Surgical History: Reports: Hx Myringotomy - Immunizations Hx Diphtheria, Pertussis, Tetanus Vaccination: Yes Physical Exam - Vital signs Vitals: Temp Pulse Resp BP Pulse Ox 97.7 F 60 16 95/52 L 100 05/21/19 12:05/21/19 12:05/21/19 12:05/21/19 12:05/21/19 12:19 Course - Vital Signs Vital signs: Temp Pulse Resp BP Pulse Ox 97.7 F 60 16 95/52 L 100 05/21/19 12:05/21/19 12:05/21/19 12:05/21/19 12:19 05/21/19 12:19
[2019-05-21 13:55] LABS: ALBUMIN 4.3 g/dL (3.5-5.0); ALKALINE PHOSPHATASE 74 U/L (38-126); ANION GAP 10 (5-19); ASPARTATE AMINO TRANSFERASE 31 U/L (17-59); BILIRUBIN,DIRECT 0.2 mg/dL (0.0-0.4); BILIRUBIN,TOTAL 0.9 mg/dL (0.2-1.3); BLOOD UREA NITROGEN 7 mg/dL (7-20); CALCIUM 9.9 mg/dL (8.4-10.2); CARBON DIOXIDE 25 mmol/L (22-30); CHLORIDE 106 mmol/L (98-107); GLUCOSE 72 mg/dL (75-110); POTASSIUM 4.5 mmol/L (3.6-5.0); TOTAL PROTEIN 7.5 g/dL (6.3-8.2)
[2019-05-21 14:19] LABS: ABSOLUTE BASOPHILS # (AUTO) 0.1 10^3/uL (0.0-0.2); ABSOLUTE EOSINOPHILS # (AUTO) 0.4 10^3/uL (0.0-0.6); ABSOLUTE LYMPHOCYTES (AUTO) 2.2 10^3/uL (0.5-4.7); ABSOLUTE MONOCYTES (AUTO) 0.5 10^3/uL (0.1-1.4); ABSOLUTE NEUT (AUTO) 3.6 10^3/uL (1.7-8.2); BASOPHILS % (AUTO) 0.8 % (0-2); EOSINOPHILS % (AUTO) 6.1 % (0-6); HEMATOCRIT 46.2 % (37.9-51.0); HEMOGLOBIN 15.4 g/dL (13.5-17.0); LYMPHOCYTES % (AUTO) 32.1 % (13-45); MEAN CORPUSCULAR HEMOGLOBIN 28.5 pg (27.0-33.4); MEAN CORPUSCULAR HGB CONC 33.4 g/dL (32.0-36.0); MEAN CORPUSCULAR VOLUME 85 fl (80-97); MONOCYTES % (AUTO) 7.9 % (3-13); PLATELET COUNT 154 10^3/uL (150-450); RED BLOOD COUNT 5.42 10^6/uL (4.35-5.55); RED CELL DISTRIBUTION WIDTH 14.9 % (11.5-14.0); SEGMENTED NEUTROPHILS % (AUTO) 53.1 % (42-78); TOTAL CELLS COUNTED % (AUTO) 100 %; WHITE BLOOD COUNT 6.8 10^3/uL (4.0-10.5)
--- NOTE | 2019-05-21 14:38 | ER Document Report ---
Entered by KANE BRIGGS SCRIBE 05/21/19 1417 Acting as scribe for:FENG SCHUSTER MD ED GI/ - General Chief Complaint: Vomiting Stated Complaint: VOMITING,FEVER Time Seen by Provider: 05/21/19 12:54 Mode of Arrival: Ambulatory Information source: Patient Notes: This 23 year old male that presents to the emergency department today with complaints of nausea and vomiting for the last two days. Patient states his symptoms began after eating cookout yesterday. TRAVEL OUTSIDE OF THE [place] IN LAST 30 DAYS: No - Related Data Allergies/Adverse Reactions: PEANUTS Adverse Reaction (Severe, Uncoded 05/21/19 12:32) Anaphylaxis Home Medications: pt denies Past Medical History - General Information source: Patient - Social History Smoking Status: Never Smoker Cigarette use (# per day): No Frequency of alcohol use: Rare Drug Abuse: Marijuana Lives with: Family Family History: Reviewed & Not Pertinent Patient has suicidal ideation: No Patient has homicidal ideation: No Pulmonary Medical History: Reports: Hx Asthma - as child Past Surgical History: Reports: Hx Myringotomy - Immunizations Hx Diphtheria, Pertussis, Tetanus Vaccination: Yes Review of Systems - Review of Systems Constitutional: No symptoms reported EENT: No symptoms reported Cardiovascular: No symptoms reported Respiratory: No symptoms reported Gastrointestinal: See HPI, Nausea, Vomiting. denies: Diarrhea Genitourinary: No symptoms reported Male Genitourinary: No symptoms reported Musculoskeletal: No symptoms reported Skin: No symptoms reported Hematologic/Lymphatic: No symptoms reported Neurological/Psychological: No symptoms reported -: Yes All other systems reviewed and negative Physical Exam - Vital signs Vitals: Temp Pulse Resp BP Pulse Ox 97.7 F 60 16 95/52 L 100 05/21/19 12:19 05/21/19 12:19 05/21/19 12:19 05/21/19 12:19 05/21/19 12:19 - Notes Notes: Physical Exam: General: Alert, appears well. HEENT: Normocephalic. Atraumatic. PERRL. Extraocular movements intact. Oropharynx clear. Neck: Supple. Non-tender. Respiratory: No respiratory distress. Clear and equal breath sounds bilaterally. Cardiovascular: Regular rate and rhythm. Abdominal: Normal Inspection. Non-tender. No distension. Normal Bowel Sounds. Back: No gross abnormalities. Extremities: Moves all four extremities. Upper extremities: Normal inspection. Normal ROM. Lower extremities: Normal inspection. No edema. Normal ROM. Neurological: Normal cognition. AAOx4. Normal speech. Psychological: Normal affect. Normal Mood. Skin: Warm. Dry. Normal color. Physical Exam: Course - Re-evaluation Re-evalutation: 05/21/19 15:11 Patient tolerating p.o. fluids fine. He states he feels much better and would like to go home. - Vital Signs Vital signs: Temp Pulse Resp BP Pulse Ox 97.7 F 60 16 95/52 L 100 05/21/19 12:19 05/21/19 12:19 05/21/19 12:19 05/21/19 12:19 05/21/19 12:19 - Laboratory Result Diagrams: 05/21/19 14:03 05/21/19 13:17 Laboratory results interpreted by me: 05/21/19 05/21/19 13:17 14:03 RDW 14.9 H Eos % (Auto) 6.1 H Glucose 72 L Lipase < 10.0 L Discharge - Discharge Clinical Impression: Nausea and vomiting Qualifiers: Vomiting type: unspecified Vomiting Intractability: non-intractable Qualified Code(s): R11.2 - Nausea with vomiting, unspecified Condition: Stable Disposition: HOME, SELF-CARE Additional Instructions: Nausea or Vomiting, Nonspecific: Vomiting (or nausea without vomiting) can be caused by many different problems. Of course, it can mean that something's wrong with the stomach, such as "stomach flu," ulcers, or inflammation. But it can also be a symptom of a problem that has nothing to do with the stomach or intestines. Vomiting is common with severe headaches, earaches, and tonsillitis. We see it with pneumonia or heart attacks. Drugs can cause nausea. Many abdominal problems cause vomiting; for example, gallstones, kidney stones, pancreatitis, and intestinal obstruction (blocked bowels). In most cases, curing the vomiting depends on fixing the problem that caused it. For temporary relief, we may use an anti-nausea medicine. For home use, we can prescribe suppositories, chewable pills, pills that dissolve in the mouth, or liquid anti-nausea drugs. If the vomiting seems to be caused by a problem in the stomach, acid-suppressing drugs may be prescribed as well. It's important to avoid dehydration. Sip clear liquids. Take increasing amounts of fluid over the first 24 hours. Then start small amounts of bland foods (such as dry toast, applesauce, mashed potato). Avoid aspirin, tobacco, and alcohol. Gradually resume your usual diet. If the vomiting worsens, if the problem that's making you vomit worsens, or if there's evidence of bleeding in the stomach (such as black, tarry stool, bloody or black vomit, or lightheadedness), you should return immediately. Call your doctor if you aren't improved in 24 to 36 hours. Prescriptions: Ondansetron [Zofran Odt 4 mg Tablet] 1 - 2 tab PO Q4H PRN #12 tab.rapdis PRN Reason: Forms: Return to Work Scribe Attestation: 05/21/19 14:18 I personally performed the services described in the documentation, reviewed and edited the documentation which was dictated to the scribe in my presence, and it accurately records my words and actions. I personally performed the services described in the documentation, reviewed and edited the documentation which was dictated to the scribe in my presence, and it accurately records my words and actions.
[2019-05-21 15:26] VITALS: BP 96/57
== END 2019-05-21 15:27 | disposition home or self-care (01) ==
LOC: ER 12:09
DX: R11.2 Nausea with vomiting, unspecified (principal); Z87.892 Personal history of anaphylaxis; Z91.010 Allergy to peanuts
CPT/HCPCS: 99284; 96361; 96374; 36415; 83690; 85025; 80053; J2405; J7030

== ENCOUNTER 2020-02-13 10:36 | Emergency (ER) | payer SELFPAY ==
[2020-02-13 10:42] VITALS: BP 132/72
--- NOTE | 2020-02-13 12:11 | RADIOLOGY REPORT (SQ) ---
EXAM DESCRIPTION: SOFT TISSUE NECK IMAGES COMPLETED DATE/TIME: 02/13/2020 11:48 am REASON FOR STUDY: possible foreign body COMPARISON: None. NUMBER OF VIEWS: Two views. TECHNIQUE: AP and lateral radiographic image of the soft tissues of the neck. LIMITATIONS: None. FINDINGS: EPIGLOTTIS: Normal. Contour normal. Aryepiglottic folds normal. PREVERTEBRAL SOFT TISSUES: Normal. No soft tissue swelling. SUBGLOTTIC AREA: Normal. No narrowing. RETROPHARYNGEAL SPACE: Normal. No soft tissue masses. BONES: No significant findings. LUNG APICES: Normal. OTHER: No radiopaque foreign body. No other significant finding. IMPRESSION: NEGATIVE STUDY OF THE SOFT TISSUES OF THE NECK. TECHNICAL DOCUMENTATION: JOB ID: [id number] [place]-72 2010 [employer]- All Rights Reserved Reading location - IP/workstation name: [employer]
--- NOTE | 2020-02-13 12:14 | RADIOLOGY REPORT (SQ) ---
EXAM DESCRIPTION: ACUTE ABDOMEN SERIES IMAGES COMPLETED DATE/TIME: 02/13/2020 11:48 am REASON FOR STUDY: swallowed tooth COMPARISON: None. NUMBER OF VIEWS: Three views. TECHNIQUE: Frontal chest, supine abdomen and upright/decubitus abdomen radiographic images acquired. LIMITATIONS: None. FINDINGS: CHEST: Lungs clear of infiltrates. FREE AIR: None. No abnormal gas collections. BOWEL GAS PATTERN: Nonobstructive pattern. No dilated loops or air fluid levels. CALCIFICATIONS: No suspicious calcifications. HARDWARE: None in the abdomen. SOFT TISSUES: No gross mass or suggestion of organomegaly. BONES: No acute fracture. No worrisome bone lesions. OTHER: No other significant finding. IMPRESSION: NO RADIOGRAPHIC EVIDENCE FOR ACUTE ABDOMINAL DISEASE. No radiopaque foreign bodies identified. TECHNICAL DOCUMENTATION: JOB ID: [id number] [place]-72 2010 [employer]- All Rights Reserved Reading location - IP/workstation name: [email or web address]
--- NOTE | 2020-02-13 12:40 | ER Document Report ---
Entered by KANE BRIGGS SCRIBE 02/13/20 1220 Acting as scribe for:FENG SCHUSTER MD ED Foreign Body - General Chief Complaint: Foreign Body Stated Complaint: SWALLOWED FORIEGN OBJECT Time Seen by Provider: 02/13/20 11:52 Mode of Arrival: Ambulatory Information source: Patient Notes: This 24 year old male patient presents to the emergency department today with c omplaints of possibly swallowing his "grill". Patient has a 6 tooth metal insert that he wears over his bottom teeth. He reports that when he woke up this morning he did not have it in so he thinks he may have swallowed it in his sleep. TRAVEL OUTSIDE OF THE [place] IN LAST 30 DAYS: No - Related Data Allergies/Adverse Reactions: PEANUTS Adverse Reaction (Severe, Uncoded 02/13/20 11:12) Anaphylaxis Past Medical History - General Information source: Patient - Social History Smoking Status: Never Smoker Cigarette use (# per day): No Chew tobacco use (# tins/day): No Frequency of alcohol use: None Drug Abuse: Marijuana Lives with: Family Family History: Reviewed & Not Pertinent Pulmonary Medical History: Reports: Hx Asthma - as child Past Surgical History: Reports: Hx Myringotomy - Immunizations Hx Diphtheria, Pertussis, Tetanus Vaccination: Yes Review of Systems - Review of Systems Constitutional: See HPI, Other - possible foreign body ingestion EENT: No symptoms reported Cardiovascular: No symptoms reported Respiratory: No symptoms reported Gastrointestinal: No symptoms reported Genitourinary: No symptoms reported Male Genitourinary: No symptoms reported Musculoskeletal: No symptoms reported Skin: No symptoms reported Hematologic/Lymphatic: No symptoms reported Neurological/Psychological: No symptoms reported -: Yes All other systems reviewed and negative Physical Exam - Vital signs Vitals: Temp Pulse Resp BP Pulse Ox 97.8 F 74 16 132/72 H 99 02/13/20 10:40 02/13/20 10:40 02/13/20 10:40 02/13/20 10:40 02/13/20 10:40 - Notes Notes: Physical Exam: General: Alert, appears well. HEENT: Normocephalic. Atraumatic. PERRL. Extraocular movements intact. Oropharynx clear. Neck: Supple. Non-tender. Respiratory: No respiratory distress. Clear and equal breath sounds bilaterally. Cardiovascular: Regular rate and rhythm. Abdominal: Normal Inspection. Non-tender. No distension. Normal Bowel Sounds. Back: No gross abnormalities. Extremities: Moves all four extremities. Upper extremities: Normal inspection. Normal ROM. Lower extremities: Normal inspection. No edema. Normal ROM. Neurological: Normal cognition. AAOx4. Normal speech. Psychological: Normal affect. Normal Mood. Skin: Warm. Dry. Normal color. Course - Vital Signs Vital signs: Temp Pulse Resp BP Pulse Ox 97.8 F 74 16 132/72 H 99 02/13/20 10:40 02/13/20 10:40 02/13/20 10:40 02/13/20 10:40 02/13/20 10:40 - Diagnostic Test Radiology reviewed: Image reviewed, Reports reviewed - X-rays of the neck, chest, abdomen and pelvis do not show foreign body. Discharge - Discharge Clinical Impression: No foreign body found on evaluation Condition: Stable Disposition: HOME, SELF-CARE Additional Instructions: X-rays from above your mouth down past your rectum did not show any metal foreign body so it is quite unlikely you could have swallowed the metal tooth. Follow-up with a local primary care provider if any further problems. I personally performed the services described in the documentation, reviewed and edited the documentation which was dictated to the scribe in my presence, and it accurately records my words and actions.
== END 2020-02-13 12:26 | disposition home or self-care (01) ==
LOC: ER 10:36
DX: Z71.1 Person with feared health complaint in whom no diagnosis is made (principal); Z87.892 Personal history of anaphylaxis
CPT/HCPCS: 70360; 74022; 99283